=== PATIENT | female | born 1995 | race Caucasian/White ===

== ENCOUNTER 2017-11-23 01:12 | Emergency (ER) | payer OTHER, BC ==
[~2017-11-23] VITALS: Ht 167.6 cm; Wt 97.5 kg
[~2017-11-23 01:12] MED LIST: BCP'S; PROZAC20 MG PO
[2017-11-24 06:21] LABS: HCV Non Reactive (NR)
== END 2017-11-23 02:15 | disposition home or self-care (01) ==
LOC: ER 01:12
PROVIDERS: Emergency Medicine
DX: Z77.21 Contact with and (suspected) exposure to potentially hazardous body fluids (principal); F32.9 Major depressive disorder, single episode, unspecified; Z88.8 Allergy status to other drugs, medicaments and biological substances; Z79.899 Other long term (current) drug therapy
CPT/HCPCS: 84460; 86703; 86707; 86803; 87340; 87389; 99283

== ENCOUNTER → 2018-01-11 | Outpatient (CLI) | payer OTHER, BC ==
[2018-01-12 20:02] LABS: HCV Non Reactive (NR)
== END | disposition home or self-care (01) ==
LOC: LAB EV 14:08
PROVIDERS: General Practice
DX: Z20.9 Contact with and (suspected) exposure to unspecified communicable disease (principal)
CPT/HCPCS: 86706; 86803; 87389

== ENCOUNTER → 2018-03-07 | Outpatient (CLI) | payer OTHER, BC ==
[2018-03-10 03:10] LABS: HIV SCREEN 4TH GENERATION WRFX Non Reactive (Non Reactive)
== END | disposition home or self-care (01) ==
LOC: LAB EV 14:41 → LAB SHORT 14:41
PROVIDERS: Family Medicine
DX: Z20.9 Contact with and (suspected) exposure to unspecified communicable disease (principal)
CPT/HCPCS: 86803; 87389

== ENCOUNTER 2019-05-13 07:27 | Emergency (ER) | payer OTHER, BC ==
[~2019-05-13] VITALS: Ht 167.6 cm; Wt 104.3 kg
[2019-05-14 02:08] LABS: HCV ANTIBODY <0.1 (0.0-0.9); HEP B CORE AB, TOT Negative (Negative)
[2019-05-14 03:08] LABS: HIV SCREEN 4TH GENERATION WRFX Non Reactive (Non Reactive)
== END 2019-05-13 08:16 | disposition home or self-care (01) ==
LOC: ER 07:27
PROVIDERS: Physician Assistant
DX: S61.031A Puncture wound without foreign body of right thumb without damage to nail, initial encounter (principal); W46.0XXA Contact with hypodermic needle, initial encounter; Z88.8 Allergy status to other drugs, medicaments and biological substances; Z79.899 Other long term (current) drug therapy; F32.9 Major depressive disorder, single episode, unspecified; F41.9 Anxiety disorder, unspecified
CPT/HCPCS: 36415; 84460; 86317; 86703; 86704; 86803; 87389; 90471; 90714; 99283-25

== ENCOUNTER → 2019-07-05 | Outpatient (CLI) | payer OTHER, BC ==
[2019-07-06 03:07] LABS: HIV SCREEN 4TH GENERATION WRFX Non Reactive (Non Reactive)
== END | disposition home or self-care (01) ==
LOC: LAB 12:18 → LAB SHORT 12:18
PROVIDERS: Physician Assistant Surgical
DX: Z20.9 Contact with and (suspected) exposure to unspecified communicable disease (principal)
CPT/HCPCS: 86803; 87389

== ENCOUNTER → 2019-08-20 | Outpatient (CLI) | payer OTHER, BC ==
[2019-08-22 02:07] LABS: HIV SCREEN 4TH GENERATION WRFX Non Reactive (Non Reactive)
== END | disposition home or self-care (01) ==
LOC: LAB SHORT 16:46 → LAB EV 16:46
PROVIDERS: Family Medicine
DX: Z20.9 Contact with and (suspected) exposure to unspecified communicable disease (principal)
CPT/HCPCS: 87389

== ENCOUNTER → 2019-12-26 | Outpatient (CLI) | payer BC, OTHER ==
[2019-12-26 17:21] LABS: Source, Urine Clean Catch
[2019-12-26 18:47] LABS: Bilirubin, Urine Neg (Neg); Blood, Urine 5+ (Neg); Glucose Qualitative, Urine Neg (Neg); Ketones, Urine Neg (Neg); Leukocyte Esterase, Urine Neg (Neg); Nitrite, Urine Neg (Neg); Protein, Urine 2+ (Neg); Urobilinogen, Urine NORM (Normal)
[2019-12-26 18:58] LABS: Appearance, Urine Hazy (Clear); Color, Urine Yellow (P-Yellow)
[2019-12-26 18:59] LABS: Bacteria Few /hpf; Red Blood Cells, Urine 50-100 /hpf (0-2); Squamous Epithelial Cells Rare /hpf (Few); White Blood Cells, Urine Rare /hpf (0-5)
[2019-12-26 19:00] LABS: Mucus Light (0-Heavy)
== END | disposition home or self-care (01) ==
LOC: LAB 15:55 → LAB SHORT 15:55
PROVIDERS: Obstetrics & Gynecology
DX: R31.9 Hematuria, unspecified (principal)
CPT/HCPCS: 81001

== ENCOUNTER → 2020-03-03 | Outpatient (CLI) | payer BC, OTHER | END | disposition home or self-care (01) | LOC: LAB 16:30 → LAB SHORT 16:30 | DX: Z34.03 Encounter for supervision of normal first pregnancy, third trimester (principal) | CPT/HCPCS: 87081; 87653 ==

== ENCOUNTER 2020-03-07 06:38 | Inpatient (IN) | payer BC, OTHER ==
[~2020-03-07] VITALS: Ht 167.6 cm; Wt 110.0 kg
[2020-03-07] MEDS ORDERED: COLACE100 MG PO (07:35)
[2020-03-07] MEDS ORDERED: Vitamin D2000 UNIT PO (07:35)
[2020-03-07] MEDS ORDERED: PRENATAL TABLE1 EAC2 PO (07:35)
[2020-03-07 07:53] LABS: BASOPHILS ABSOLUTE AUTO 0.03 K/mm3 (0.00-0.23); BASOPHILS PERCENT AUTO 0 % (0-2); EOSINOPHILS ABSOLUTE AUTO 0.06 K/mm3 (0.00-0.68); EOSINOPHILS PERCENT AUTO 1 % (0-6); Hematocrit 36.5 % (33.0-51.0); Hemoglobin 12.9 g/dL (11.5-16.0); IMMATURE GRAN ABSOLUTE AUTO 0.05 K/mm3 (0.00-0.10); IMMATURE GRAN PERCENT AUTO 0 % (0-1); LYMPHOCYTES ABSOLUTE AUTO 2.36 K/mm3 (0.84-5.20); LYMPHOCYTES PERCENT AUTO 19 % (21-46); MONOCYTES ABSOLUTE AUTO 0.99 K/mm3 (0.16-1.47); MONOCYTES PERCENT AUTO 8 % (4-13); Mean Corpuscular HGB 31.5 pg (26.0-34.0); Mean Corpuscular HGB Conc 35.3 g/dL (31.5-36.5); Mean Corpuscular Volume 89 fL (80-100); Mean Platelet Volume 10.6 fL (9.1-12.4); NEUTROPHILS ABSOLUTE AUTO 9.03 K/mm3 (1.96-9.15); NEUTROPHILS PERCENT AUTO 72 % (41-73); Platelet Count 159 K/mm3 (150-400); RDW Coefficient Variation 13.1 % (11.7-14.2); RDW Standard Deviation 42.6 fL (35.1-46.3); White Blood Cell Count 12.52 K/mm3 (4.00-11.30)
--- NOTE | 2020-03-08 07:15 | NUR ---
PT SITITNG UP IN BED, HOLDING NB. PT HASN'T SLEPT YET. DOING WELL, VERY EXCITED. AT SIDE, SUPPORTIVE. 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 WILL CALL WHEN NEEDED. PLAN TO STAY TODAY AND WORK ON FEEDS.
--- NOTE | 2020-03-08 13:25 | NUR ---
LAB HERE TO DRAW FMS, AND CBC.
[2020-03-08 13:34] LABS: Hematocrit 31.2 % (33.0-51.0); Hemoglobin 10.8 g/dL (11.5-16.0); Mean Corpuscular HGB 31.3 pg (26.0-34.0); Mean Corpuscular HGB Conc 34.6 g/dL (31.5-36.5); Mean Corpuscular Volume 90 fL (80-100); Mean Platelet Volume 10.5 fL (9.1-12.4); Platelet Count 162 K/mm3 (150-400); RDW Coefficient Variation 13.2 % (11.7-14.2); RDW Standard Deviation 43.2 fL (35.1-46.3); Red Blood Cell Count 3.45 M/mm3 (3.80-5.20); White Blood Cell Count 16.21 K/mm3 (4.00-11.30)
[2020-03-08] MEDS ORDERED: PRENATAL TABLE1 EAC2 PO (14:10)
[2020-03-08] MEDS ORDERED: ABAT250V (14:13)
[2020-03-08] MEDS ORDERED: IBUP800 (14:14)
--- NOTE | 2020-03-08 17:39 | NUR ---
RN ROUNED TO HELP W/ . PT HAS NB LATCHED AND FEEDING WELL W/ A SHIELD. PT DESIRES TO FEED W/O SHIELD. RN ATTEMPTED TO LATCH NB W/O SHIELD, NB WOULD NOT DRAW TISSUE IN OR MUCH OF AN ATTEMPT TO LATCH W/O SHIELD. RN TALKED WITH PARENTS ABOUT EXPECTATIONS OF A 37 WEEK NB. SHIELD PLACED BACK TO BREAST AND NB LATCHED EASILY TO SHIELD AND FED. GOOD AMOUNT OF COLOSTRUM SEEN IN SHIELD. INSTRUCT/DEMO WIDENING LATCH, CORRECT POSITIONING, NIPPLE SHAPE AFTER FEEDS, AND SHIELD USE. INSTRUCTED TO CONTINUE TO ATTEMPT TO LATCH NB W/O SHIELD FOR 5-10 MINUTES TO SEE WHAT NB WILL DO W/ EACH FEED. INSTRUCT/REVIEW BOOKLET ON HOW TO CORRECTLY LINE UP AND LATCH NB AND CHANGES IN NB DURING THE FIRST WEEK. RN WILL ROUND AGAIN TO HELP LATCH NB IN AM.
--- NOTE | 2020-03-08 19:09 | NUR ---
REPORT TO ONCOMING SHIFT, NO ACUTE CHANGES.
--- NOTE | 2020-03-09 10:10 | NUR ---
DISCHARGE ISNTRUCTIONS REVIEWED WITH PT AND D/C PAPERWORK GIVEN. PT REPORTS NO QUESTIONS AT THIS TIME.
--- NOTE | 2020-03-09 16:43 | NUR ---
RN ROUNDED TO SEE HOW WENT THROUGH THE NIGHT. PT REPORTS SHE WAS NOT ABLE TO LATCH NB W/O SHIELD. NIPPLES ARE FLAT. PT LATCHED NB EASILY W/ SHIELD AND NB FEEDS WELL. INSTRUCT/DEMO WIDENING LATCH, CORRECT POSITIONING, SHIELD USE AND WEANING. PT DENIES ANY FURTHER QUESTIONS OR CONCERNS.
== END 2020-03-09 10:24 | disposition home or self-care (01) | DRG 807 ==
LOC: BC 06:38 → OBS 06:38 → BC 07:13
PROVIDERS: ADMIT Obstetrics & Gynecology
PROC: 10E0XZZ Delivery of Products of Conception, External Approach (ICD-10-PCS; principal; 2020-03-08)
PROC: 0KQM0ZZ Repair Perineum Muscle, Open Approach (ICD-10-PCS; 2020-03-08)
PROC: 3E0R3BZ Introduction of Anesthetic Agent into Spinal Canal, Percutaneous Approach (ICD-10-PCS; 2020-03-08)
DX: O99.214 Obesity complicating childbirth (principal); Z37.0 Single live birth; O70.1 Second degree perineal laceration during delivery; Z3A.37 37 weeks gestation of pregnancy; E66.9 Obesity, unspecified
CPT/HCPCS: 36415; 51702; 85025; 85027; 85460; 96372; J1885; J2001; J2590; J2791; J3010; J7120

== ENCOUNTER → 2020-10-12 | Outpatient (CLI) | payer BC, OTHER ==
[~2020-10-12] MED LIST changes: +ABAT250V; +COLACE100 MG PO; +IBUP800; +PRENATAL TABLE1 EAC2 PO; +Vitamin D2000 UNIT PO
== END | disposition home or self-care (01) ==
LOC: PLD 13:05 → LAB SHORT 13:05
DX: D22.5 Melanocytic nevi of trunk (principal); L81.4 Other melanin hyperpigmentation
CPT/HCPCS: 88305

== ENCOUNTER → 2021-02-01 | Outpatient (CLI) | payer OTHER | END | disposition home or self-care (01) | LOC: LAB 15:45 → LAB SHORT 15:45 | PROVIDERS: Nurse Practitioner | DX: Z01.419 Encounter for gynecological examination (general) (routine) without abnormal findings (principal) | CPT/HCPCS: G0145 ==

== ENCOUNTER → 2022-02-17 | Outpatient (CLI) | payer OTHER ==
[2022-02-17 10:34] LABS: Source, Urine Clean Catch
[2022-02-17 11:29] LABS: Amorphous Mod (0-Heavy); Bacteria Many /hpf; Hyaline Casts 0-2 /lpf (0-2); Squamous Epithelial Cells Many /hpf (Few); Transitional Epithelial Cells Few /hpf (0-Rare)
== END | disposition home or self-care (01) ==
LOC: LAB SHORT 10:31
PROVIDERS: Obstetrics & Gynecology
DX: Z34.81 Encounter for supervision of other normal pregnancy, first trimester (principal)
CPT/HCPCS: 81015; 87086

== ENCOUNTER → 2022-08-29 | Outpatient (CLI) | payer OTHER | END | disposition home or self-care (01) | LOC: LAB 15:59 → LAB SHORT 15:59 | DX: O09.893 Supervision of other high risk pregnancies, third trimester (principal) | CPT/HCPCS: 87081; 87150 ==

== ENCOUNTER 2022-09-28 19:31 | Inpatient (IN) | payer OTHER ==
[~2022-09-28] VITALS: Ht 167.6 cm; Wt 112.2 kg
[2022-09-28 20:04] LABS: BASOPHILS ABSOLUTE AUTO 0.03 K/mm3 (0.00-0.23); BASOPHILS PERCENT AUTO 0 % (0-2); EOSINOPHILS ABSOLUTE AUTO 0.07 K/mm3 (0.00-0.68); EOSINOPHILS PERCENT AUTO 1 % (0-6); Hematocrit 37.1 % (33.0-51.0); Hemoglobin 13.1 g/dL (11.5-16.0); IMMATURE GRAN ABSOLUTE AUTO 0.04 K/mm3 (0.00-0.10); IMMATURE GRAN PERCENT AUTO 0 % (0-1); LYMPHOCYTES ABSOLUTE AUTO 3.88 K/mm3 (0.84-5.20); LYMPHOCYTES PERCENT AUTO 27 % (21-46); MONOCYTES ABSOLUTE AUTO 1.05 K/mm3 (0.16-1.47); MONOCYTES PERCENT AUTO 7 % (4-13); Mean Corpuscular HGB 30.6 pg (26.0-34.0); Mean Corpuscular HGB Conc 35.3 g/dL (31.5-36.5); Mean Corpuscular Volume 87 fL (80-100); Mean Platelet Volume 10.5 fL (9.1-12.4); NEUTROPHILS ABSOLUTE AUTO 9.28 K/mm3 (1.96-9.15); NEUTROPHILS PERCENT AUTO 65 % (41-73); Platelet Count 216 K/mm3 (150-400); RDW Coefficient Variation 13.1 % (11.7-14.2); RDW Standard Deviation 40.5 fL (35.1-46.3); Red Blood Cell Count 4.28 M/mm3 (3.80-5.20); White Blood Cell Count 14.35 K/mm3 (4.00-11.30)
--- NOTE | 2022-09-29 11:02 | NUR ---
Spiritual care visit attempted. Upon receiving a referral for spiritual care, I visit [facility]. Pt's RN checks with pt for desire to have a [employer] visit. Pt declines spiritual care visit.
== END 2022-09-30 09:51 | disposition home or self-care (01) | DRG 807 ==
LOC: OBS 19:31 → BC 19:36
PROVIDERS: ADMIT Obstetrics & Gynecology
PROC: 10E0XZZ Delivery of Products of Conception, External Approach (ICD-10-PCS; principal; 2022-09-29)
PROC: 0HQ9XZZ Repair Perineum Skin, External Approach (ICD-10-PCS; 2022-09-29)
PROC: 10907ZC Drainage of Amniotic Fluid, Therapeutic from Products of Conception, Via Natural or Artificial Opening (ICD-10-PCS; 2022-09-29)
PROC: 3E0R3BZ Introduction of Anesthetic Agent into Spinal Canal, Percutaneous Approach (ICD-10-PCS; 2022-09-29)
PROC: 00HU33Z Insertion of Infusion Device into Spinal Canal, Percutaneous Approach (ICD-10-PCS; 2022-09-29)
DX: O48.0 Post-term pregnancy (principal); Z37.0 Single live birth; O70.0 First degree perineal laceration during delivery; O76 Abnormality in fetal heart rate and rhythm complicating labor and delivery; O69.1XX0 Labor and delivery complicated by cord around neck, with compression, not applicable or unspecified; O99.214 Obesity complicating childbirth; O26.893 Other specified pregnancy related conditions, third trimester; Z67.11 Type A blood, Rh negative; Z98.890 Other specified postprocedural states; Z79.899 Other long term (current) drug therapy; Z3A.40 40 weeks gestation of pregnancy
CPT/HCPCS: 36415; 51702; 85025; 85460; 86850; 86900; 86901; 96372; A9270; J1885; J2590; J2791; J3010; J7120

== ENCOUNTER → 2023-11-22 | Outpatient (CLI) | payer OTHER ==
[2023-11-25 08:47] LABS: HPV GENOTYPE 16 Not Detected; HPV GENOTYPE 18 Not Detected; HPV HIGH RISK Not Detected; HPV SOURCE Cervical/Vag
== END ==
LOC: LAB SHORT 11:54 → LAB 11:54
PROVIDERS: Obstetrics & Gynecology
DX: Z01.419 Encounter for gynecological examination (general) (routine) without abnormal findings (principal)
CPT/HCPCS: 87624; G0123